=== PATIENT | female | born 1950 | race Caucasian/White ===

== ENCOUNTER 2016-09-08 07:33 | Day surgery (SDC) | payer MEDICARE, OTHER ==
[~2016-09-08] VITALS: Ht 154.9 cm; Wt 59.9 kg
[~2016-09-08 07:33] MED LIST: CHOL10008 PO; FERR-83 PO; KEN25CR EXT; RALO60TA13 PO
[2016-09-08] MEDS ORDERED: MethylprednisoLONE Depot 80 mg/mL Inj ONE (07:34)
[2016-09-08] MEDS ORDERED: Iohexol 240 mg/mL 10 mL Inj ONE (07:34)
[2016-09-08] MEDS ORDERED: Bupivacaine-MPF 0.25% 30 mL Inj ONE (07:34)
[2016-09-08 07:48] VITALS: BP 119/86; RESP 16; O2SAT 99
--- NOTE | 2016-09-08 14:51 | PCM.PROC ---
Procedure Note Date of Service: Sep 08, 2016 Pre Procedure Diagnosis: PROCEDURE: LEFT Sacroiliac joint injection (fluoroscopically guided) PRE-PROCEDURE DIAGNOSIS: Sacroiliitis POST-PROCEDURE DIAGNOSIS: same INDICATION: A 65 year-old patient with posterior hip pain, suggestive of sacroiliitis ASA / ANTICOAGULATION: No asa x 7 days PERFORMED BY: Pako Dahl MD DESCRIPTION OF PROCEDURE: Patient was met in the holding area. Consent was signed, site was confirmed and all questions were answered. Patient was taken to the procedure suite and placed prone on the procedure table. Local anesthesia with 1% lidocaine was injected into the epidermidis and dermis. A 22-gauge Quincke spinal needle was advanced towards the sacroiliac joint after visualization was optimized fluoroscopically in the AP view. Proper positioning in the joint was confirmed by injecting contrast. We then took a lateral view to reconfirm proper positioning in the sacroiliac joint. 80mg depomedrol with 2 cc of 0.25% Bupivicaine injected without difficulty. ANESTHESIA: Local. EBL: None. No Blood Products Used COMPLICATIONS: None SPECIMENS: None POST-PROCEDURE DISPOSITION: Patient tolerated the procedure well was returned to the holding area in stable condition. They were discharged home when all discharge criteria were met. Fluro time: See Radiology Report Evaluation/Physical Exam before discharge revealed: DISCHARGE MEDICATIONS: none FOLLOW UP: Followup Marilyn in 4 weeks Pako Dahl MD * Pain Management * Anesthesiology Pako Dahl MD Sep 08, 2016 14:51
== END 2016-09-08 23:59 | disposition home or self-care (01) ==
LOC: END 07:33
PROVIDERS: ATTEND Anesthesiology Pain Medicine
DX: M46.1 Sacroiliitis, not elsewhere classified (principal)
CPT/HCPCS: G0260; J1040